=== PATIENT | male | born 1945 | race Caucasian/White ===

== ENCOUNTER → 2019-04-14 | Day surgery (SDC) | payer MEDICARE, OTHER ==
[~2019-04-14] MED LIST: LIDOCAINE HCL 1% 20ML VIAL (Pyxis) INJ ONE; SODIUM BICARBONATE 4% (2.4MEQ) 5ML VIAL IV ONE
== END | disposition home or self-care (01) ==
LOC: RADANGIO 08:17
PROVIDERS: ATTEND Podiatrist Foot & Ankle Surgery
DX: M86.8X7 Other osteomyelitis, ankle and foot (principal); Z79.899 Other long term (current) drug therapy
CPT/HCPCS: 36573; C1725; J3490